=== PATIENT | female | born 1950 | race Caucasian/White ===

== ENCOUNTER 2017-02-25 09:31 | Emergency (ER) | payer BC ==
[2017-02-25 09:40] VITALS: BP 132/75
--- NOTE | 2017-02-25 10:25 | UC ---
Skin Complaint HPI - HPI Summary HPI Summary: Small amount, of itchy erythema in "belly button" for a couple of days - History of Current Complaint Chief Complaint: UCSkin Time Seen by Provider: 02/25/17 10:15 Stated Complaint: SKIN COMPLAINT Hx Obtained From: Patient ?: No Onset/Duration: Sudden Onset, Lasting Days, Still Present Timing: Constant Onset Severity: Mild Current Severity: Mild Location: Discrete Character: Redness Aggravating: Nothing Alleviating: Nothing Associated Signs & Symptoms: Positive: Negative - Allergy/Home Medications Allergies/Adverse Reactions: Allergies Allergy/AdvReac Type Severity Reaction Status Date / Time Vancomycin Allergy Intermediate Flushing Verified 02/25/17 09:36 Bacitracin [From Neosporin] Allergy Mild REDNESS Verified 02/25/17 09:36 Neomycin [From Neosporin] Allergy Mild REDNESS Verified 02/25/17 09:36 Penicillins Allergy Mild Rash Verified 02/25/17 09:36 Polymyxin B [From Neosporin] Allergy Mild REDNESS Verified 02/25/17 09:36 Ciprofloxacin [From Cipro] Allergy Rash Verified 02/25/17 09:36 Review of Systems Constitutional: Negative Skin: Other - erythmea in "belly button' Eyes: Negative ENT: Negative Respiratory: Negative Cardiovascular: Negative Gastrointestinal: Negative Genitourinary: Negative Motor: Negative Neurovascular: Negative Musculoskeletal: Negative Neurological: Negative Psychological: Negative All Other Systems Reviewed And Are Negative: Yes PMH/Surg Hx/FS Hx/Imm Hx Previously Healthy: No Endocrine History: Hypothyroidism - Surgical History Surgical History: Yes Surgery Procedure, Year, and Place: L knee surgery for bakers cyst. 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 fiber ablassion. left sided massectomy. tubal - Family History Known Family History: Positive: None - Social History Occupation: Retired Lives: With Family Alcohol Use: None Substance Use Type: None Smoking Status (MU): Never Smoked Tobacco - Immunization History Most Recent Tetanus Shot: ~[id number] Physical Exam Triage Information Reviewed: Yes Appearance: Well-Appearing, No Pain Distress, Well-Nourished Vital Signs: Initial Vital Signs Temp 96.7 F 02/25/17 09:37 Pulse 89 02/25/17 09:37 Resp 17 02/25/17 09:37 BP 132/75 02/25/17 09:37 Pulse Ox 100 02/25/17 09:37 Vital Signs Reviewed: Yes Eye Exam: Normal Eyes: Positive: Conjunctiva Clear ENT Exam: Normal ENT: Positive: Normal ENT inspection, Hearing grossly normal. Negative: Nasal congestion, Nasal drainage, Trismus, Muffled/hoarse voice Dental Exam: Normal Neck exam: Normal Neck: Positive: Supple, Nontender Respiratory Exam: Normal Respiratory: Positive: Chest non-tender, No respiratory distress, No accessory muscle use Cardiovascular Exam: Normal Cardiovascular: Positive: RRR, Pulses Normal, Brisk Capillary Refill Abdominal Exam: Normal Abdomen Description: Positive: Nontender, Soft Musculoskeletal Exam: Normal Musculoskeletal: Positive: Strength Intact, ROM Intact Neurological Exam: Normal Neurological: Positive: Alert, Muscle Tone Normal Psychological Exam: Normal Skin Exam: Other Skin: Positive: Other - small amount of erythema in umbillical area, no drainage open areas or tenderness Course/Dx - Course Course Of Treatment: soap and water wash with thourough drying lotisone BID for 7-14 days - Differential Diagnoses - Skin Complaint Differential Diagnoses: Cellulitis, Impetigo, Tinea - Diagnoses Provider Diagnoses: Tinea Corpus Discharge - Discharge Plan Condition: Stable Disposition: HOME Prescriptions: Clotrimazole/Betamethasone* [Lotrisone Cream*] 1 applic TOPICAL BID #45 gm Patient Education Materials: Antifungals (On the skin) Referrals: Mary Jane Chu MD [Primary Care Provider] - If Needed
== END 2017-02-25 10:31 | disposition home or self-care (01) ==
LOC: UCEAST 09:31
DX: B35.4 Tinea corporis (principal); E03.9 Hypothyroidism, unspecified; Z88.3 Allergy status to other anti-infective agents; Z88.0 Allergy status to penicillin
CPT/HCPCS: 99212; G0463